=== PATIENT | female | born 1945 | race Caucasian/White ===

== ENCOUNTER 2016-07-17 09:22 | Emergency (ER) | payer MEDICARE, SELFPAY | END 2016-07-17 12:58 | disposition home or self-care (01) | LOC: ER 09:22 | DX: R19.7 Diarrhea, unspecified (principal); R10.32 Left lower quadrant pain; F32.9 Major depressive disorder, single episode, unspecified; K21.9 Gastro-esophageal reflux disease without esophagitis; I10 Essential (primary) hypertension; Z90.49 Acquired absence of other specified parts of digestive tract; Z90.710 Acquired absence of both cervix and uterus; Z79.899 Other long term (current) drug therapy | CPT/HCPCS: 36415; Q9963; Q9967 ==